=== PATIENT | female | born 1940 | race Caucasian/White ===

== ENCOUNTER 2017-04-06 09:53 | Emergency (ER) | payer MEDICARE ==
--- NOTE | 2017-04-06 10:22 | ERNOTE ---
Medical Problem HPI - Narrative Date of Service: 04/06/17 - General Chief Complaint: Flu Symptoms Time Seen by Provider: 04/06/17 10:18 Source: patient, RN notes reviewed Exam Limitations: no limitations - Immun/Allergies/Home Medications Immunizations: IMMUNIZATION HX Immunizations Up to Date Yes History of Influenza Vaccine Yes Hx Pneumococcal Vaccination Yes Allergies/Adverse Reactions: Allergies No Known Allergies Allergy (Verified 04/06/17 10:17) Home Medications: HOME MEDICATIONS Colestipol HCl [Colestid] 1 g PO DAILY 04/06/17 [Last Taken 04/06/17] Streeter 3-6-9 1,200 mg Softgel 1 PO DAILY 04/06/17 [Last Taken 04/06/17] Omeprazole 40 mg PO DAILY 04/06/17 [Last Taken 04/06/17] Promethazine HCl/Codeine [Prometh-Codein 6.25-10 mg/5 ml] 5 ml PO Q4H PRN #120 ml 04/06/17 [Last Taken Unknown] - History of Present History Narrative: 77 year old female presents to the ED from home for a cough and sinus congestion for 6 days. She has been taking Coricidin without improvement. She is unsure if she has had a fever. She reports a dull headache and chest tightness when she coughs. She also reports extreme fatigue and being unable to sleep. 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 He does not even know who she is at times and it sounds as though he has hallucinations. She states she wants something to help her sleep, but she is afraid to sleep because he is up and down all night at times. She is tearful and appears exhausted. Date (Duration): 04/08/17 Timing: constant, getting worse Review of Systems - Review of Systems Constitutional: Present: chills, diaphoresis, fatigue, malaise. Absent: recent illness EYE: Absent: eye pain, eye discharge ENT: Present: nose congestion, nasal drainage, sore throat, throat swelling. Absent: ear pain Respiratory: Present: shortness of breath, cough. Absent: wheezing Cardiology: Absent: chest pain, syncope, edema Gastrointestinal/Abdominal: Absent: nausea, vomiting, abdominal pain Genitourinary: Present: no symptoms reported Musculoskeletal: Absent: muscle pain, neck pain Skin: Absent: rash, lesions Neurological: Present: headache. Absent: dizziness/light-headedness Endocrine: Present: no symptoms reported Hematologic/Lymphatic: Present: no symptoms reported Psych: Present: anxiety, depressed - Patient's Past Medical History Patient History - Medical: GERD Patient History - Cardiac/Respiratory: Hypertension Patient History - Cancer: Colon Patient History - Surgical Procedures: Appendectomy, Cancer Surgery, Cholecystectomy, Colonoscopy, Hysterectomy, Total Knee Replacement Patient History - Other: None LMP (females 10-50): Menopausal - Social History Living Situations: spouse Psych History: Hx of Anxiety Smoking Status: Never smoker Alcohol Use: none Drug Use: none - Immunizations Immunizations Up to Date: Yes Hx Pneumococcal Vaccination: Yes History of Influenza Vaccine: Yes Physical Exam - Physical Exam General Appearance: Present: alert, mild distress, obese, other - Tearful, appears fatigued and depressed Head Exam: Present: tenderness - maxillary sinuses bilaterally. Absent: swelling Eye Exam: Normal inspection: bilateral Ears, Nose, Throat: Present: nasal congestion, sinus pain/drainage, pharyngeal erythema, pharyngeal swelling. Absent: abnormal TM (R), abnormal TM (L), dry mucous membranes Neck: Present: normal inspection, nontender, supple Respiratory: Present: no respiratory distress, normal breath sounds, no accessory muscle use, lungs clear Cardiovascular/Chest: Present: regular rate, rhythm, no murmur Extremity Exam: Present: normal inspection, pedal edema Neurological Exam: Present: alert, oriented, no motor/sensory deficits. Absent : normal mood/affect Skin Exam: Present: normal color, warm/dry ED Progress - Results and Orders Patient's Lab Results:: I have reviewed the patient's lab results. - Vital Signs Patient's Vital Signs:: I have reviewed the patient's vital signs. Vital Signs: Vital Signs 04/06/17 10:04 Temperature 37.0 C Pulse Rate 92 Respiratory 18 Rate Blood Pressure 136/77 O2 Sat by Pulse 95 Oximetry - X-Ray X-Ray #1 X-Ray: chest Interpretation: Interp. by me X-ray Comments: No acute cardiopulmonary process noted - Progress/Reassessment Chief Complaint: Flu Symptoms Progress:: Unchanged Plan - Plan Plan: CBC and CMP unremarkable for any acute process as is chest xray. Negative influenza as well. Rx for cough syrup given to hopefully help the patient get some sleep. Discussed need for f/u if symptoms are not improving in 3 to 5 days. Has f/u with PCP next week scheduled. Case management spoke with patient about options for care for her . Departure Clinical Impression: Upper respiratory infection, viral - Departure Disposition: Home Follow Up Needed Condition: Stable Instructions: Upper Respiratory Infection, Adult, [id number] Referrals: Yvette Gramajo DO [Primary Care Provider] - Prescriptions: Promethazine HCl/Codeine [Prometh-Codein 6.25-10 mg/5 ml] 5 ml PO Q4H PRN #120 ml PRN Reason: Cough
[2017-04-06 11:04] LABS: Hematocrit 41.5 % (37.0-47.0); Hemoglobin 14.3 gm/dL (12.5-16.0); Mean Cell Volume 82.7 fl (78-100); Mean Corpuscular Hemoglobin 28.5 pg (27-31); Mean Corpuscular Hgb Conc 34.5 g/dl (32-36); Mean Platelet Volume 8.7 fl (6.0-9.5); Neutrophil # 6.1 K/mm3 (1.3-6.0); Neutrophil % 66.6 % (42-75.0); Platelet Count 346 K/mm3 (150-450); Red Blood Count 5.02 M/mm3 (4.2-5.4); Red Cell Distribution Width 13.3 % (11.5-14.0); White Blood Count 9.2 K/mm3 (4.0-10.5)
[2017-04-06 11:23] LABS: Albumin * 3.8 gm/dl (3.4-5.0); Anion Gap 14.1 mmol/L (6.8-13.8); Bilirubin, Total 1.2 mg/dL (0.0-1.1); Ca. Corrected For Albumin 8.9 mg/dL (8.4-10.2); Calcium * 9.1 mg/dL (7.9-10.9); Carbon Dioxide 28.5 mmol/L (24-32.6); Potassium 3.6 mmol/L (3.4-4.6); Total Protein 7.7 gm/dL (6.2-8.2)
[2017-04-06 11:59] VITALS: BP 135/72
== END 2017-04-06 11:58 | disposition home or self-care (01) ==
LOC: ER 09:53
DX: J06.9 Acute upper respiratory infection, unspecified (principal); Z85.038 Personal history of other malignant neoplasm of large intestine

== ENCOUNTER 2017-05-25 11:39 | Emergency (ER) | payer MEDICARE ==
[2017-05-25 12:15] VITALS: BP 164/97
== END 2017-05-25 11:52 | disposition home or self-care (01) ==
LOC: ER 11:39
DX: Z13.6 Encounter for screening for cardiovascular disorders (principal)